=== PATIENT | female | born 1950 | race Caucasian/White ===

== ENCOUNTER → 2021-10-28 | Outpatient (CLI) | payer MEDICARE, OTHER ==
[2016-09-01 14:16] VITALS: BP 125/81
[~2021-10-28] MED LIST: HYDR-3165 PO; ONDA4TAB10 PO
--- NOTE | 2021-10-28 10:58 | RAD ---
Exam: XR HUMERUS_LT 2 VIEWS, XR SHOULDER_LEFT 2+ VIEWS History: Fall. Pain. Comparison: None. Findings: Osseous mineralization is normal. No acute fracture or dislocaton. Mild degenerative changes at the a cromioclavicular and glenohumeral joint. Humerus is unremarkable. No focal soft tissue swelling. The visualized left chest is unremarkable. Impression: 1. No acute osseous abnormality in the left shoulder and humerus. Electronically signed by: Jarrod Sosa MD (10/28/2021 10:56 AM) [id number]
== END ==
LOC: PMG 10:33
PROVIDERS: ATTEND Nurse Practitioner Family
DX: S49.92XA Unspecified injury of left shoulder and upper arm, initial encounter (principal); M19.012 Primary osteoarthritis, left shoulder; W19.XXXA Unspecified fall, initial encounter
CPT/HCPCS: 73030; 73060